=== PATIENT | male | born 1965 | race Caucasian/White ===

== ENCOUNTER 2024-02-21 14:47 | Inpatient (IN) | payer BC, SELFPAY ==
[2024-02-19 18:21] VITALS: BP 160/108
--- NOTE | 2024-02-19 18:28 | ED.CVA ---
ED Provider Triage
<DUGLAS Mayorga - Last Filed: 02/19/24 19:02>
-
Patient seen by provider in Triage?: Seen in Triage
Attestation: A medical screening examination has been initiated by a qualified medical provider. Based on the assessment performed at this time, it has been determined that an emergent medical condition may exist and the patient has been informed
that further medical evaluation and possible additional diagnostic testing may be needed.
HPI: 58-year-old male brought to the ER by for evaluation of change mental status. Patient's noticed around 4 PM that patient was confused and could not remember things. He could not remember what he did today. She reports he works
from home and did not come down for lunch. She reports that they did have afternoon sexual intercourse and she did not see him since then. She
Began at 4 PM and noticed that he was confused. He could not remember what he did that morning and could not remember the events of the day.
Patient presents awake alert he is aware that he is here because he apparently cannot remember things and does admit to feeling confused.
Patient is able to tell me his name is aware that his is next to him. He is unsure of the day month or year. He does follow commands. He denies any headache.
reports no recent injury or trauma. No prior history of stroke. Recent trip to [place] in January 29 to via flight.
Patient able to answer questions though he is confused. He has no focal deficits.
GENERAL: Alert , in no apparent distress
EYE: No visual abnormalities.
NECK: Trachea midline
ENT: No visible abnormalities.
LUNGS: No acute respiratory distress
NEUROLOGICAL: Alert confused to year , day, month, no focal deficits
SKIN: Skin intact. No visible changes.
MUSCULOSKELETAL: Moving extremities normally
PSYCH: Normal and appropriate interaction.
This is a medical evaluation conducted in person to initiate diagnostic evaluation and provide initial therapeutics. Please see further documentation by the treating clinician.
History of Present Illness
<DUGLAS Mayorga - Last Filed: 02/19/24 19:02>
General
Chief Complaint: CVA/TIA Symptoms
Time Seen by Provider: 02/19/24 18:58
<Jann Salinas MD - Last Filed: 02/19/24 19:40>
General
Source: patient and spouse
Exam Limitations: clinical condition
Nursing documentation reviewed up to this point in time: agreed with
Onset of Stroke Symptoms
Onset of symptoms known: No
Time pt last seen normal is known: Yes
Date last time pt seen normal: 02/19/24
Time last time pt seen normal: 13:00
History of Present Illness
History of Present Illness:
58-year-old male with no reported chronic medical issues presents to the emergency room accompanied by his for evaluation of acute memory loss. Patient cannot tell me why he is in the hospital and is limited as a historian for this reason. He
cannot recall the events of today at all. He says that he feels well here he denies any complaints including a headache, chest pain, abdominal pain, nausea or any other issues. Denies feeling weak or numb in his extremities, denies change in his
vision or speech. According to his he was in his normal state of health�in fact they had intercourse today at around noon�and he was last seen by his normal at around 1 PM. At around 4 PM his says that he came into her office at
home and seem to be very confused and could not recall events from earlier in the day. Symptoms were not improving as the evening went on and he was remembering significant facts including the location of his son, where his mother lives, etc.
brought to the ER for assessment. She never noticed any slurred speech, focal weakness or numbness, facial drooping. He has never had similar symptoms in the past. There was no recent fall or trauma she says. Denies any history of alcohol or
drug use.
Review of Systems
<Jann Salinas MD - Last Filed: 02/19/24 19:40>
Review of Systems
All Other Systems: ROS reviewed and negative except as documented in HPI and ROS
Constitutional: Denies fever
Respiratory: Denies trouble breathing
Cardiac: Denies chest pain
ABD/GI: Denies abdominal pain or nausea
Neurological: Denies headache, weakness or numbness
Phy Exam
<Jann Salinas MD - Last Filed: 02/19/24 19:40>
Physical Exam
Physical Exam:
General: Awake, alert, oriented to person and place but not time, not in acute distress
Head: Normocephalic, atraumatic
Eyes: Conjunctiva normal, EOMI, pupils equal round and reactive to light bilateral
Throat: Airway intact, handling secretions
Neck: Trachea midline, supple without meningismus
Lungs: Clear to auscultation bilaterally, no wheezing, rales, rhonchi
Heart: Regular rate and rhythm, no murmurs, gallops, or rubs
Abd: Soft, non distended, nontender
Neuro: Cranial nerves intact 2 through 12, speech is fluid without dysarthria or aphasia, no limb ataxia, motor and sensory intact proximally and distally in the upper and lower extremities
Skin: no rash
Extremities: No edema in extremities, equal pulses in all extremities
Scores
<Jann Salinas MD - Last Filed: 02/19/24 19:40>
NIH Stroke Score
Level of Consciousness: 0 - Alert
LOC Questions: 1-Answers one correctly
LOC Commands: 0-Performs both correctly
Best Horizontal Gaze: 0-Normal
Visual Courtney: 0=Normal, no visual loss
Facial Palsy: 0=Normal, symmetrical
Motor - Right Arm: 0=No drift 10 seconds
Motor - Left Arm: 0=No drift 10 seconds
Motor - Right Le-No drift 5 seconds
Motor - Left Le-No drift 5 seconds
Limb Ataxia: 0-Absent
Sensation: 0-Normal
Best Language: 0-No aphasia
Dysarthria: 0-Normal
Extinction and Inattention: 0-No abnormality
Total Score:: 1
Heart Failure Risk
Heart Failure Risk Score: Not Applicable
Heart Score for Chest Pain Patients
STEMI patient?: Not applicable
Withdrawal Assessment of Alcohol
Withdrawal Assessment Completed?: Not applicable
Course
<DUGLAS Mayorga - Last Filed: 02/19/24 19:02>
Orders/Labs/Results
Orders:
Orders
02/19/24 18:28
Urinalysis Reflex To Culture Urgent
02/19/24 18:29
CT Head W/o Iv Contrast Stat
Comment:
Reason For Exam: change in ms
02/19/24 18:43
Electrocardiogram (*1) Urgent
Reason for Study: TIA/Stroke
02/19/24 18:44
EKG- Treatment ONCE
02/19/24 18:50
Comprehensive Metabolic Panel Urgent
Thyroid Stimulating Hormone to Reflex [TSH Reflex To Free T4] Urgent
02/19/24 18:51
Troponin I Urgent
02/19/24 19:10
CT Head & Neck Angio W/wo IV Urgent
Comment:
Reason For Exam: acute onset behavioral change
Aspirin 325 mg PO NOW STA
Clopidogrel Bisulfate [Plavix] 75 mg PO NOW STA
02/19/24 19:15
Complete Blood Count/With Diff Urgent
02/19/24 19:33
Electrocardiogram (*1) Urgent
Reason for Study: TIA/Stroke
EKG- Treatment ONCE
Abnormal Lab Results
02/19/24
18:50
BUN 26 H mg/dl
(9-20)
Glucose 105 H mg/dl
(70-99)
02/19/24 18:50
Vital Signs
Initial and Last Documented VS:
Initial Vital Signs
Temp Pulse Resp BP Pulse Ox
36.4 C 81 18 160/108 97
02/19/24 18:21 02/19/24 18:21 02/19/24 18:21 02/19/24 18:21 02/19/24 18:21
Last Documented Vital Signs
Temp Pulse Resp BP Pulse Ox
36.4 C 81 18 160/108 97
02/19/24 18:21 02/19/24 18:21 02/19/24 18:21 02/19/24 18:21 02/19/24 18:21
<Jann Salinas MD - Last Filed: 02/19/24 19:40>
Orders/Labs/Results
Orders:
Orders
02/19/24 18:28
Urinalysis Reflex To Culture Urgent
02/19/24 18:29
CT Head W/o Iv Contrast Stat
Comment:
Reason For Exam: change in ms
02/19/24 18:43
Electrocardiogram (*1) Urgent
Reason for Study: TIA/Stroke
02/19/24 18:44
EKG- Treatment ONCE
02/19/24 18:50
Comprehensive Metabolic Panel Urgent
Thyroid Stimulating Hormone to Reflex [TSH Reflex To Free T4] Urgent
02/19/24 18:51
Troponin I Urgent
02/19/24 19:10
CT Head & Neck Angio W/wo IV Urgent
Comment:
Reason For Exam: acute onset behavioral change
Aspirin 325 mg PO NOW STA
Clopidogrel Bisulfate [Plavix] 75 mg PO NOW STA
02/19/24 19:15
Complete Blood Count/With Diff Urgent
02/19/24 19:33
Electrocardiogram (*1) Urgent
Reason for Study: TIA/Stroke
EKG- Treatment ONCE
Abnormal Lab Results
02/19/24
18:50
BUN 26 H mg/dl
(9-20)
Glucose 105 H mg/dl
(70-99)
02/19/24 18:50
Vital Signs
Initial and Last Documented VS:
Initial Vital Signs
Temp Pulse Resp BP Pulse Ox
36.4 C 81 18 160/108 97
02/19/24 18:21 02/19/24 18:21 02/19/24 18:21 02/19/24 18:21 02/19/24 18:21
Last Documented Vital Signs
Temp Pulse Resp BP Pulse Ox
36.4 C 81 18 160/108 97
02/19/24 18:21 02/19/24 18:21 02/19/24 18:21 02/19/24 18:21 02/19/24 18:21
<Jann Salinas MD - Last Filed: 02/19/24 19:40>
MDM/Problems Addressed
Differential Diagnosis Includes:
Frontal stroke, focal seizure, transient global amnesia, drug/alcohol intoxication
MDM/Problems Addressed:
58-year-old male presents for evaluation of acute memory loss�last seen normal 1 PM. Hypertensive otherwise normal vitals. Physical exam as above. Stroke alert called; NIH stroke scale 1. He is outside tPA window based on last known normal. CT
head was negative for any acute pathology. Usual labs sent off and unremarkable. Patient was seen by neurology and case discussed at bedside�suspect likely transient global amnesia but will plan to admit for CTA head and neck, MRI to rule out
frontal stroke. Case discussed with hospitalist for admission.
Acute Exacerbation and/or Progression of Chronic Illness:
Acutely hypertensive�permissive in the setting of possible stroke
Acute Exacerbation and/or Progression of Chronic Illness: HTN
<Jann Salinas MD - Last Filed: 02/19/24 19:40>
*Radiology
Radiology exam reviewed: radiology read reviewed
*Pulse Oximetry
Patient hypoxic: no
*Critical Care Note
Total Time (30-74mins, 75-104mins- exclusive of procedures): Not Applicable
Data Reviewed
Source: patient and spouse
<Jann Salinas MD - Last Filed: 02/19/24 19:40>
Patient Management
Discussion with other providers: Hospitalist (Discussed with hospitalist) and Manager Asset (Discussed with neurology)
Escalation/DeEscalation of care consider admission/obs:
Admission indicated
ED Attending Note
<DUGLAS Mayorga - Last Filed: 02/19/24 19:02>
-
Portions of this chart may have been created with voice recognition software.� Occasional wrong word or��sound alike� substitutions may have occurred due to the inherent limitations of voice recognition software.
Discharge Plan
Departure
Patient Disposition: Admit
Date of Disposition: 02/19/24
Time of Disposition: 19:33
Admit to doctor: Cameron
Presentation/result/management discussed w/ accepting MD/DO: Hospitalist
Discharge Problem:
Amnesia
Prescriptions:
No Action
fluticasone propionate [Flonase] 50 mcg/actuation [place],Suspension
1 spray INTRANASAL DAILY
Interventions
Interventions:
*Risk Screen - Suicide Last Done: 02/19/24 18:21
*General Assessment Last Done: 02/19/24 18:21
*Neglect/Abuse Screening Last Done: 02/19/24 18:21
Discharge Date and Time
Print Language: PASHTO
[2024-02-19 18:58] VITALS: BP 144/98
[2024-02-19 19:00] VITALS: BP 146/100
[2024-02-19 19:17] VITALS: BMI 40.3
[2024-02-19 19:18] LABS: ALT (SGPT) 27 U/L (0-50); AST (SGOT) 25 U/L (17-59); Albumin 4.8 g/dl (3.5-5.0); Alkaline Phosphatase 76 U/L (38-126); Blood Urea Nitrogen 26 mg/dl (9-20); Calcium 9.8 mg/dl (8.4-10.2); Carbon Dioxide 23 mmol/L (22-30); Chloride 101 mmol/L (98-107); Estimated Creatinine Clearance > 125 ml/min; Glucose 105 mg/dl (70-99); Potassium 4.1 mmol/L (3.5-5.1); Sodium 137 mmol/L (135-145); Total Bilirubin 0.9 mg/dl (0.2-1.3); Total Protein 7.7 g/dl (6.3-8.2); eGFR > 60.00
[2024-02-19] MEDS: PLAVIX 75 MG PO (19:27)
[2024-02-19] MEDS: ASPIRIN 325 MG PO (19:27)
[2024-02-19 19:29] LABS: Troponin I < 0.012 ng/ml
--- NOTE | 2024-02-19 19:35 | HPS.HSE ---
Addendum entered and electronically signed by Adi Barnes DO 02/19/24 20:31:
Patient seen and examined independently. Agree with findings and plan as set forth by DUGLAS Craig.
Patient is a 58y M with no significant PMH who presents to ED for evaluation of confusion. History obtained almost entirely from family at the bedside as patient has no recollection of immediate events leading to hospitalization. Patient
reports recent cold symptoms including sinus congestion. He has been taking Flonase, Mucinex and OTC 'Sudafed' with some improvement in these symptoms. He actually stopped most of these medications in the past day or two as he was feeling
improved. Today he seemed very confused according to his . He had poor recollection of recent events and could not remember eating his lunch, etc. was concerned with his significant confusion / disorientation and brought patient to the
ED for evaluation.
In the ED, patient was initially unable to state the year, day / date, his own age, etc. At present he is oriented to recent issues (though no events of today) and is able to state his age, year, month, etc.
Ass:
TGA
Plan:
Observe overnight for further evaluation and treatment.
Fairly typical presentation of TGA with no focal deficits / symptoms / etc.
CT head in the ED with no acute abnormalities.
Neuro recommends DAPT overnight with MRI in the AM for further evaluation.
Follow for any new / worsening symptoms.
Original Note:
Family Physician
-
Family Physician:
Chief Complaint
-
memory loss
History of Present Illness
58 year old with non significant PMH presented to us with confusion. patient couldn't remember anything that he did today. patient is awake, alert. patient not familiar with the day and the year. stated nasal congestion for one week. he was taking
fluticasone and pseudoephedrine. he remember taking it yesterday, but does not remember if he took it today. denied RUANO,dizzy or syncope. denied fever, chills,chest pain, sob.denied abdominal pain,n,v,d. denied dysuria or hematuria.he still cannot
remember the year, date and month.
head CT with old lacunar infract. admitting for further management.
Medical History
Past Medical History
Past Medical History: Reports None
Past Surgical History: Reports Other
Additional Past Surgical History:
b/l knee surgery
splenectomy
Social History
Tobacco: Non-smoker
Alcohol: None
Drug: None
Personal:
Living: With Family
Employment: Employed
Family History
Family History: Not pertinent
Allergies / Home Medications
Allergies reflects when Allergies were last updated in [employer].
Home Medications with original date entered in [employer]
Allergy/Medication List:
Allergies
Allergy/AdvReac Type Severity Reaction Status Date / Time
No Known Allergies Allergy Unverified 02/19/24 18:20
Home Medications
fluticasone propionate 50 mcg/actuation nasal spray,suspension 1 spray intranasal DAILY 02/19/24
Review of Systems
-
Constitutional: Reports No Symptoms
EENT: Reports No Symptoms
Respiratory: Reports No Symptoms
Cardiac: Reports No Symptoms
Abdomen/GI: Reports No Symptoms
: Reports No Symptoms
Musculoskeletal: Reports No Symptoms
Skin: Reports No Symptoms
Neurological: Reports No Symptoms and Other (confusion)
Endocrine: Reports No Symptoms
Hematologic/Lymphatic: Reports No Symptoms
Psych: Reports No Symptoms
Physical Exam
Vital Signs
Vital Signs
Temp Pulse Resp BP Pulse Ox
97.5 F 81 18 160/108 97
02/19/24 18:21 02/19/24 18:21 02/19/24 18:21 02/19/24 18:21 02/19/24 18:21
Physical Exam
General: Well Developed, Well Nourished and No Apparent Distress
HEENT: NormoCephalic, Moist mucous membranes and Atraumatic
Respiratory: Clear
Cardiac: S1/S2 and Regular Rhythm; No Murmur or Rub
GI: Soft, Non Tender, Non Distended and Normal Bowel Sounds; No Organomegaly
Rectal: Deferred by Provider
Musculoskeletal: No Clubbing, No Cyanosis and No Edema
Skin: No Rash
Neuro: Awake, Alert and Nonfocal/grossly intact
Laboratory Results
-
02/19/24 18:50
Laboratory Results
Total Bilirubin 0.9 mg/dl (0.2-1.3) 02/19/24 18:50
AST 25 U/L (17-59) 02/19/24 18:50
ALT 27 U/L (0-50) 02/19/24 18:50
Alkaline Phosphatase 76 U/L (38-126) 02/19/24 18:50
Troponin I < 0.012 ng/ml 02/19/24 18:51
Data Reviewed
-
CT Scan: Report Reviewed by me
Lab Data: Labs Reviewed by me
Impression/Plan
-
#possible TGA/r/o CVA
-Ct head 4 mm probably old lacunar infarct in the left lentiform nucleus.Mild diffuse cortical atrophy
-asa and plavix continued
-CTA/MRI
-statin continued
-obtain A1c,lipid profile
-PT/OT
-speech eval
#DVT prophylaxis
-scd
#CODE status
-full code
[2024-02-19 19:37] LABS: % Basophils 0.5 % (0-2); % Eosinophils 1.4 % (0-6); % Immature Granulocytes 0.3 % (0-0.5); % Lymphocytes 34.3 % (20.5-51.1); % Monocytes 11.3 % (1.7-9.3); % Neutrophils 52.2 % (42.2-75.2); Absolute Basophils 0.1 10^3/uL (0-0.2); Absolute Eosinophils 0.2 10^3/uL (0-0.7); Absolute Immature Granulocytes 0.1 10^3/uL (0-0.05); Absolute Monocytes 1.7 10^3/uL (0.1-0.6); Absolute Neutrophils 7.6 10^3/uL (1.4-6.5); Hematocrit 49.8 % (39.0-52.0); Hemoglobin 16.7 g/dL (13.0-18.0); Mean Corp Hgb Conc. 33.5 g/dL (33.0-37.0); Mean Corpuscular Volume 89.4 fL (80.0-94.0); Mean Platelet Volume 9.3 fL (7.4-10.4); Nucleated Red Blood Cells % 0 % (-); Platelet Count 362 10^3/uL (130-400); Red Blood Cell Count 5.57 10^6/uL (4.70-6.10); Red Cell Dist. Width 13.7 % (11.5-14.5); White Blood Cell Count 14.6 10^3/uL (4.8-10.8)
[2024-02-19 19:53] LABS: TSH Reflex To Free T4 1.69 uIU/ml (0.47-4.68)
[2024-02-19 20:23] VITALS: BP 139/81
[2024-02-19 20:31] LABS: Urine Albumin Negative (Neg - Trace); Urine Bilirubin Negative (Negative); Urine Character Clear (Clear); Urine Color Yellow; Urine Glucose Negative (Negative); Urine Ketone Negative (Negative); Urine Leukocyte Negative (Negative); Urine Nitrite Negative (Negative); Urine Occult Blood Negative (Negative); Urine Specific Gravity 1.025 (<1.030); Urine Urobilinogen Negative (Neg - 1+)
--- NOTE | 2024-02-19 20:36 | CON.NEURO ---
Addendum entered and electronically signed by Hanny Mattson MD 02/19/24 21:28:
stroke alert
called in at 18:53
Please refer to the consult note after note template
Original Note:
Neuro Assessment/Plan
Assessment
Neurology Consultation Note.
HPI:
ER VS: 160/108, 81, 18, 36.4 C
EKG:
PDMP:
Labs:
CT head wo contrast
CTA head/neck
PMH:
PSH:
SH:
FH:
All:
ROS: Constitutional: Negative. Negative for chills, fever and unexpected weight change.
HENT: Negative for ear pain, hearing loss, tinnitus and trouble swallowing.
Eyes: Negative. Negative for photophobia, pain and visual disturbance.
Respiratory: Negative for cough, choking and shortness of breath.
Cardiovascular: Negative for chest pain, palpitations and leg swelling.
Gastrointestinal: Negative for abdominal pain and vomiting.
Endocrine: Negative. Negative for cold intolerance.
Genitourinary: Negative for dysuria, flank pain and urgency.
Musculoskeletal: Negative for back pain, gait problem, neck pain and neck stiffness.
Skin: Negative for rash.
Allergic/Immunologic: Negative. Negative for immunocompromised state.
Neurological: Negative for dizziness, tremors, seizures, speech difficulty, numbness and headaches.
Psychiatric/Behavioral: Negative for behavioral problems, confusion and hallucinations.
General: Well developed. In no acute distress.
Cardio: Regular rate and rhythm without murmur. Extremities are without cyanosis or edema.
Neuro:
Mental Status: Alert, oriented to person, place, and date. Normal attention and recall. Good fund of knowledge. Follows complex requests across the midline. Comprehension, naming, and repetition intact. Immediate and delayed recall 3/3.
Cranial Nerves: . Pupils are equally round and reactive to light. EOMs full. Visual muniz full to confrontation. No ptosis. No nystagmus. V1-V3 intact to light touch and pinprick bilaterally, symmetric. Face symmetric. Normal hearing AU.
The palate elevated well. SCMs and traps 5/5. Tongue midline. No dysarthria.
Motor: Normal bulk and tone. No pronator or arm drift. Strength 5/5 throughout. No clonus.
Reflexes: 2+ throughout the upper extremities and knees. 2/2 in AJs. Plantar responses flexor bilaterally.
Sensory: Normal pinprick, vibration and JPS.
Coordination: No dysmetria or tremor.
Gait: deferred
Assessment and Plan:
I.
II.
III.
I personally reviewed all radiology and labs along with past medical records pertinent to current medical problems. Total time spent in patient care is 60 minutes.
Thank you for allowing us to participate in the care of this patient. We will continue to follow. Please do not hesitate to contact us with any questions or concerns.
Consultation
Order
Date of Consultation: 02/19/24
Requesting Provider: Sofy Treadwell CRNP
Reason for Consult: confusion
Neurology Consultation Note.
HPI: This is a 58-year-old right-handed man who presented to [facility] on 02/19/2024 with change in memory. According to patient's spouse she noted Mr. Carpio to be amnestic of the events that took place late morning as well as
perseverating around 1:00..
The patient himself endorses frustration with the fact that he is in the hospital. No reports of headache, change in vision, strange sensation with similar episodes in the past.
ER VS:160/108, 81, 18, 36.4 C
EKG:NSR, QTc Int : 467 ms
PDMP: none
Labs: WBC 14.6, gluc 105, normal TSH, unremarkable ua.
CT head wo contrast-mild diffuse cortical atrophy, 4 mm probably old lacunar infarct in the left lentiform nucleus
PMH: class III obesity; colonic polyps history of sport related abdominal trauma
PSH: Exploratory laparotomy, splenectomy, right knee arthroscopy
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
FH: Father�colon/lung cancer, dementia; mother�pancreatic cancer, brother�A-fib
All:NKDA
ROS: Constitutional: Negative. Negative for chills, fever and unexpected weight change.
HENT: Negative for ear pain, hearing loss, tinnitus and trouble swallowing.
Eyes: Negative. Negative for photophobia, pain and visual disturbance.
Respiratory: Negative for cough, choking and shortness of breath.
Cardiovascular: Negative for chest pain, palpitations and leg swelling.
Gastrointestinal: Negative for abdominal pain and vomiting.
Endocrine: Negative. Negative for cold intolerance.
Genitourinary: Negative for dysuria, flank pain and urgency.
Musculoskeletal: Negative for back pain, gait problem, neck pain and neck stiffness.
Skin: Negative for rash.
Allergic/Immunologic: Negative. Negative for immunocompromised state.
Neurological: Positive for amnesia
Psychiatric/Behavioral: Negative for behavioral problems, confusion and hallucinations.
General: Well developed. In no acute distress.
Cardio: Regular rate and rhythm without murmur. Extremities are without cyanosis or edema.
Neuro:
Mental Status: Alert, oriented to person, place, and date. Normal attention and recall. Good fund of knowledge. Follows complex requests across the midline. Comprehension, naming, and repetition intact. Immediate recall�3 out of 3, delayed
recall�0 out of 3
Cranial Nerves: . Pupils are equally round and reactive to light. EOMs full. Visual muniz full to confrontation. No ptosis. No nystagmus. V1-V3 intact to light touch and pinprick bilaterally, symmetric. Face symmetric. Normal hearing AU.
The palate elevated well. SCMs and traps 5/5. Tongue midline. No dysarthria.
Motor: Normal bulk and tone. No pronator or arm drift. Strength 5/5 throughout. No clonus.
Reflexes: 2+ throughout the upper extremities and knees. Plantar responses flexor bilaterally.
Sensory: Normal vibration at the ankles
Coordination: No dysmetria or tremor.
Gait: deferred
Assessment and Plan:
I. Acute amnestic syndrome. Differential diagnosis includes metabolic/toxic encephalopathy, hippocampal infarct, seizure, and dissociative DO.
II. Elevated blood pressure
III. Leukocytosis
-desk monitor
-Seizure precautions
-Please check urine tox,
-Ativan 2 mg IV as needed for GTC lasting for over 2 minutes
-thiamine 500 mg IV once
-Aspirin 81 mg once a day
-Brain MRI without maria e
-Routine EEG
-Will follow
I personally reviewed all radiology and labs along with past medical records pertinent to current medical problems. Total time spent in patient care is 60 minutes.
Thank you for allowing us to participate in the care of this patient. We will continue to follow. Please do not hesitate to contact us with any questions or concerns.
Subjective/Objective
Subjective Data
Date of Service: February 19, 2024
Objective Data
Vital Signs
Temp Pulse Resp BP Pulse Ox
36.4 C 81 18 160/108 97
02/19/24 18:21 02/19/24 18:21 02/19/24 18:21 02/19/24 18:21 02/19/24 18:21
Lab Results
02/19/24 19:15
02/19/24 18:50
Sodium 137 mmol/L (135-145) 02/19/24 18:50
Potassium 4.1 mmol/L (3.5-5.1) 02/19/24 18:50
BUN 26 mg/dl (9-20) H 02/19/24 18:50
Glucose 105 mg/dl (70-99) H 02/19/24 18:50
Calcium 9.8 mg/dl (8.4-10.2) 02/19/24 18:50
Patient Allergies
No Known Allergies Allergy (Unverified 02/19/24 18:20)
Medications
-
Home Medications
�Medication �Instructions �Recorded
fluticasone propionate 50 1 spray intranasal DAILY 02/19/24
mcg/actuation nasal
spray,suspension
Vital Signs and Labs
-
Vital Signs and Labs:
Vital Signs
Temp Pulse Resp BP Pulse Ox
36.4 C 81 18 160/108 97
02/19/24 18:21 02/19/24 18:21 02/19/24 18:21 02/19/24 18:21 02/19/24 18:21
Lab Results
02/19/24 19:15
02/19/24 18:50
Sodium 137 mmol/L (135-145) 02/19/24 18:50
Potassium 4.1 mmol/L (3.5-5.1) 02/19/24 18:50
BUN 26 mg/dl (9-20) H 02/19/24 18:50
Glucose 105 mg/dl (70-99) H 02/19/24 18:50
Calcium 9.8 mg/dl (8.4-10.2) 02/19/24 18:50
Home Medications
-
Home Medications
fluticasone propionate 50 mcg/actuation nasal spray,suspension 1 spray intranasal DAILY 02/19/24
[2024-02-19] MEDS: THIAMINE INJECTION 255 MG IV (21:50)
[2024-02-20] VITALS (26 sets, daily range): BP systolic 122–152; BP diastolic 81–114; PULSE 77; O2SAT 93; BMI 39.8
[2024-02-20] MEDS: LIPITOR PO (00:31)
[2024-02-20 06:47] LABS: HDL Cholesterol 43 mg/dl; LDL Cholesterol, Calculated 149 mg/dl; Total Cholesterol 213 mg/dl (50-199); Triglyceride 106 mg/dl (10-149); Very Low Density Lipoprotein 21 mg/dl (0-30)
--- NOTE | 2024-02-20 09:16 | W.PN.HOSP.TC ---
Today's Communication/Plan
-
Awaiting MRI and EEG results. Continue monitoring for any changes in motor or sensory functions or memory.
Assessment / Plan
Assessment / Plan
Assessment:
58 year old male with no significant past medical history presented to [facility] ED for evaluation of confusion and recent memory loss. Patient describes that he has no recollection of what had happened a few hours immediately before his
hospitalization. He remarks that his memory is otherwise fine except for those few hours. Currently he has no motor or sensory deficits and reports no other symptoms.
CT Head W/o Iv Contrast
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
Mild diffuse cortical atrophy
CT Head & Neck Angio W/wo IV
Normal
Plan:
#Acute Amnestic Syndrome
-Brain MRI w/o contrast
-Routine EEG
-Neurology consulted, input appreciated
-Thiamine given in ED
-Continue Aspirin and Plavix
-Seizure Precautions
-Continue monitoring for any changes in mental status
#Hypertension
-Continue monitoring BP
#Hyperlipidemia
-Follow up with PCP outpatient
Full Code
DVT Prophylaxis- SCDs, Plavix
Anticipated Discharge: Within 24 hours
Subjective/Interval History
-
Date of Service: February 20, 2024
Patient says that he has been feeling better ever since he has been admitted. Reports no further loss of memory and reports no loss of sensory or motor function.
Objective Data
-
Vital Signs:
Vital Signs
Temp Pulse Resp BP Pulse Ox
97.5 F 76 20 139/92 94
02/19/24 18:21 02/20/24 05:56 02/20/24 05:56 02/20/24 05:56 02/20/24 05:56
Review of Systems
-
History Source: Patient
Constitutional: Denies Fever, No Appetite, Fatigue, Sleep Disturbance, Chills or Weakness
EENT: Reports No Symptoms Reported
Respiratory: Denies Cough, Trouble Breathing or Wheezing
Cardiac: Denies Chest Pain, Diaphoresis, Palpitations or Syncope
Abdomen/GI: Denies Abdominal Pain, Nausea or Vomiting
Genitourinary: Reports No Symptoms
Musculoskeletal: Reports No Symptoms
Skin: Reports No Symptoms
Neuro: Denies Dizzy, Headache, Weakness, Numbness, Lightheadedness or Seizures
Endocrine: Reports No Symptoms
Hematologic / Lymphatic: Reports No Symptoms
Allergy / Immunology: Reports No Symptoms
Physical Exam
-
General: Well Developed, Well Nourished, No Apparent Distress and Comfortable
HEENT: Normocephalic, Atraumatic and Moist Mucous Membranes
Respiratory: Clear to Auscultation and Non Labored Respirations
Cardiac: Regular Rhythm and S1/S2
GI: Soft, Nontender, Nondistended and Normal Bowel Sounds
Musculoskeletal: No Clubbing, No Cyanosis and No Edema
Skin: Warm, Dry and Rash (around lower face (urticarial rash))
Neuro: Awake, Alert, Oriented, AO x 3, No Motor Deficits, Nonfocal/Grossly Intact and No Sensory Deficits
Psych: Calm and Intact Judgement/Insight
Data Reviewed
-
CT Scan: Report Reviewed by me, Discussed with Physician, Discussed with Nurse and Discussed with Patient
Labs: Labs Reviewed by me, Discussed with Physician, Discussed with Nurse and Discussed with Patient
[2024-02-20] MEDS: PLAVIX 75 MG PO (09:23)
[2024-02-20] MEDS: ASPIR LOW (ENTERIC COATED) 81 MG PO (09:23)
--- NOTE | 2024-02-20 09:33 | W.PN.UPDATE ---
Update Note
Progress Note Update
I saw and evaluated the patient. I reviewed the resident�s note and agree with findings and plan as documented in the resident�s note.
Gen: NAD, AAOx3.
Eyes: EOMI, PERRLA, no scleral icterus.
Neck: supple.
CV: RRR, +S1/S2, no m/r/g.
Resp: CTAB, no rales, wheezes, or rhonchi.
Abd: +BS, soft, NT, ND
Skin: No rashes.
Neuro: CN 2-12 intact, non-focal.
Psych: Normal mood and affect.
CTA head/neck: Normal
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 Mild diffuse cortical atrophy.
Memory loss:
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
-CT brain, CTA head/neck above
-neuro following
-EEG done, read pending
-check MRI brain
-cont ASA/Plavix/statin
-tele
Morbid obesity due to excess calories
FULL/SCDs
--- NOTE | 2024-02-20 09:50 | W.PN.NEURO.1 ---
Today's Communication / Plan
-
.
Neuro Assessment/Plan
Assessment
Neurology Consultation Note.
HPI:
ER VS: 160/108, 81, 18, 36.4 C
EKG:
PDMP:
Labs:
CT head wo contrast
CTA head/neck
PMH:
PSH:
SH:
FH:
All:
ROS: Constitutional: Negative. Negative for chills, fever and unexpected weight change.
HENT: Negative for ear pain, hearing loss, tinnitus and trouble swallowing.
Eyes: Negative. Negative for photophobia, pain and visual disturbance.
Respiratory: Negative for cough, choking and shortness of breath.
Cardiovascular: Negative for chest pain, palpitations and leg swelling.
Gastrointestinal: Negative for abdominal pain and vomiting.
Endocrine: Negative. Negative for cold intolerance.
Genitourinary: Negative for dysuria, flank pain and urgency.
Musculoskeletal: Negative for back pain, gait problem, neck pain and neck stiffness.
Skin: Negative for rash.
Allergic/Immunologic: Negative. Negative for immunocompromised state.
Neurological: Negative for dizziness, tremors, seizures, speech difficulty, numbness and headaches.
Psychiatric/Behavioral: Negative for behavioral problems, confusion and hallucinations.
General: Well developed. In no acute distress.
Cardio: Regular rate and rhythm without murmur. Extremities are without cyanosis or edema.
Neuro:
Mental Status: Alert, oriented to person, place, and date. Normal attention and recall. Good fund of knowledge. Follows complex requests across the midline. Comprehension, naming, and repetition intact. Immediate and delayed recall 3/3.
Cranial Nerves: . Pupils are equally round and reactive to light. EOMs full. Visual muniz full to confrontation. No ptosis. No nystagmus. V1-V3 intact to light touch and pinprick bilaterally, symmetric. Face symmetric. Normal hearing AU.
The palate elevated well. SCMs and traps 5/5. Tongue midline. No dysarthria.
Motor: Normal bulk and tone. No pronator or arm drift. Strength 5/5 throughout. No clonus.
Reflexes: 2+ throughout the upper extremities and knees. 2/2 in AJs. Plantar responses flexor bilaterally.
Sensory: Normal pinprick, vibration and JPS.
Coordination: No dysmetria or tremor.
Gait: deferred
Assessment and Plan:
I.
II.
III.
I personally reviewed all radiology and labs along with past medical records pertinent to current medical problems. Total time spent in patient care is 60 minutes.
Thank you for allowing us to participate in the care of this patient. We will continue to follow. Please do not hesitate to contact us with any questions or concerns.
Subjective/Objective
Subjective Data
Date of Service: February 20, 2024
Neurology follow-up note
Mr. Carpio reports no complaints.
According to patient's spouse the patient has had intermittent episodes of forgetfulness, including forgetting conversations about dinner plans, meal planning for his son's ulcerative colitis, and misplacing his bank card after signing a bill at a
restaurant. He has also experienced changes in personality, becoming more short-tempered, irritable, and exhibiting irrational jealousy. These changes have been noticeable over the past year and were initially attributed to stress.
His executive functions, such as planning and multitasking, appear to be intact.
Brain MRI is pending. The patient continues to be afebrile.
LDL 149.
Routine EEG(02/20/2024) normal.
PMH: class III obesity; colonic polyps history of sport related abdominal trauma
PSH: Exploratory laparotomy, splenectomy, right knee arthroscopy
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
FH: Father�colon/lung cancer, dementia (developed in his 70s); mother�pancreatic cancer, brother�A-fib
All:NKDA
ROS: Constitutional: Negative. Negative for chills, fever and unexpected weight change.
HENT: Negative for ear pain, hearing loss, tinnitus and trouble swallowing.
Eyes: Negative. Negative for photophobia, pain and visual disturbance.
Respiratory: Negative for cough, choking and shortness of breath.
Cardiovascular: Negative for chest pain, palpitations and leg swelling.
Gastrointestinal: Negative for abdominal pain and vomiting.
Endocrine: Negative. Negative for cold intolerance.
Genitourinary: Negative for dysuria, flank pain and urgency.
Musculoskeletal: Negative for back pain, gait problem, neck pain and neck stiffness.
Skin: Negative for rash.
Allergic/Immunologic: Negative. Negative for immunocompromised state.
Neurological: Positive for amnesia
Psychiatric/Behavioral: Negative for behavioral problems, confusion and hallucinations.
General: Well developed. In no acute distress.
Cardio: Regular rate and rhythm without murmur. Extremities are without cyanosis or edema.
Neuro:
Mental Status: Alert, oriented to person, place, and date. Normal attention and recall. Good fund of knowledge. Follows complex requests across the midline. Comprehension, naming, and repetition intact. Immediate recall�3 out of 3, delayed
recall�1/3.
Cranial Nerves: . Pupils are equally round and reactive to light. EOMs full. Visual muniz full to confrontation. No ptosis. No nystagmus. V1-V3 intact to light touch and pinprick bilaterally, symmetric. Face symmetric. Normal hearing AU.
The palate elevated well. SCMs and traps 5/5. Tongue midline. No dysarthria.
Motor: Normal bulk and tone. No pronator or arm drift. Strength 5/5 throughout. No clonus.
Reflexes: 2+ throughout the upper extremities and knees. Plantar responses flexor bilaterally.
Sensory: Normal vibration at the ankles
Coordination: No dysmetria or tremor.
Gait: deferred
Assessment and Plan:
I. Encephalopathy. Differential diagnosis includes vascular, toxic, neurodegenerative
II. Elevated blood pressure
III. Leukocytosis
IV. DLP
-case monitor
-Seizure precautions
-Please check urine tox
-Ativan 2 mg IV as needed for GTC lasting for over 2 minutes
-Aspirin 81 mg once a day
-Brain MRI without maria e
-Will follow
I personally reviewed all radiology and labs along with past medical records pertinent to current medical problems. Total time spent in patient care is 35 minutes.
Thank you for allowing us to participate in the care of this patient. We will continue to follow. Please do not hesitate to contact us with any questions or concerns.
Objective Data
Vital Signs
Temp Pulse Resp BP Pulse Ox
36.7 C 87 18 143/109 95
02/20/24 09:27 02/20/24 09:27 02/20/24 09:27 02/20/24 09:27 02/20/24 09:27
Lab Results
02/19/24 19:15
02/19/24 18:50
Sodium 137 mmol/L (135-145) 02/19/24 18:50
Potassium 4.1 mmol/L (3.5-5.1) 02/19/24 18:50
BUN 26 mg/dl (9-20) H 02/19/24 18:50
Glucose 105 mg/dl (70-99) H 02/19/24 18:50
Calcium 9.8 mg/dl (8.4-10.2) 02/19/24 18:50
LDL Cholesterol, Calc 149 mg/dl 02/20/24 05:46
Patient Allergies
No Known Allergies Allergy (Unverified 02/19/24 18:20)
Vital Signs and Labs
-
Vital Signs and Labs:
Vital Signs
Temp Pulse Resp BP Pulse Ox
36.7 C 87 18 143/109 95
02/20/24 09:27 02/20/24 09:27 02/20/24 09:27 02/20/24 09:27 02/20/24 09:27
Lab Results
02/19/24 19:15
02/19/24 18:50
Sodium 137 mmol/L (135-145) 02/19/24 18:50
Potassium 4.1 mmol/L (3.5-5.1) 02/19/24 18:50
BUN 26 mg/dl (9-20) H 02/19/24 18:50
Glucose 105 mg/dl (70-99) H 02/19/24 18:50
Calcium 9.8 mg/dl (8.4-10.2) 02/19/24 18:50
LDL Cholesterol, Calc 149 mg/dl 02/20/24 05:46
Medications
-
Medications:
Generic Name Dose Route Start Last Admin
Trade Name Freq PRN Reason Stop Dose Admin
Acetaminophen 650 mg 02/19/24 23:45
Acetaminophen 650 Mg Rectal Suppository RECTAL 03/18/24 23:44
Q4HPRN PRN
RUANO, mild pain, or temp >100.4F
Acetaminophen 650 mg 02/19/24 23:45
Acetaminophen 325 Mg Tablet PO 03/18/24 23:44
Q4HPRN PRN
RUANO, mild pain, or temp >100.4F
Aspirin 81 mg 02/20/24 08:00 02/20/24 09:23
Aspirin 81 Mg (Enteric Coated) Tablet PO 03/19/24 07:59 81 mg
DAILY VIRGIE Administration
Atorvastatin Calcium 40 mg 02/19/24 23:45 02/20/24 00:31
Atorvastatin (Lipitor) 40 Mg Tablet PO 03/18/24 23:44 Not Given
QPM VIRGIE
Clopidogrel Bisulfate 75 mg 02/20/24 08:00 02/20/24 09:23
Clopidogrel 75 Mg Tablet PO 03/19/24 07:59 75 mg
DAILY VIRGIE Administration
Sodium Chloride 0 flush 02/19/24 21:00
Sodium Chloride 0.9% (Flush) Syringe IV 03/18/24 20:59
PER PROTOCOL VIRGIE
Home Medications
-
Home Medications
fluticasone propionate 50 mcg/actuation nasal spray,suspension 1 spray intranasal DAILY 02/19/24
--- NOTE | 2024-02-20 10:06 | EEGC.RPT ---
Continuous EEG Report
Recording
Start Date of Data Reviewed: 02/20/24
Done with Video Recording: Yes
Electrocardiogram: Unremarkable
Report
�TECHNICAL REMARKS:��This is a technically satisfactory eighteen channel record employing 21 disc electrodes applied according to a measured international 10-20 electrode placement system.��There were no significant technical difficulties.��The
study was done on a [employer] System.
STUDY DURATION: 30�mins,�2 secs.
CLINICAL HISTORY: This is a 58-year-old man with amnestic syndrome. This study was requested to look for epileptiform abnormalities.
�
MEDICATIONS: no AED
REPORT: �At the onset of the EEG, the patient is awake. The background activity consists of 10-10.5 Hz, persistent, posteriorly dominant, moderate amplitude, symmetric and rhythmic activity that is reactive to eye-opening. Anteriorly, it consists of
a mixture of low voltage indeterminate activity and 20-25 Hz, persistent, low amplitude, symmetric and rhythmic activity.� Stepwise intermittent photic stimulation (1-31 Hz) and hyperventilation (2 min, good effort) do not induce any abnormalities.
Hyperventilation was not performed. Drowsiness is characterized by low amplitude mixed frequency activity, decreased eye blinking, and muscle artifact.
�
�IMPRESSION: �This is a normal awake and drowsy EEG. There is no evidence of focal slowing or epileptiform activity.� A normal EEG does not rule out epilepsy. If the clinical picture warrants, a sleep-deprived awake and sleep record may be helpful.
�
�
--- NOTE | 2024-02-20 10:06 | CM ---
CM reviewed medical records.
--- NOTE | 2024-02-20 10:19 | PTOTSP ---
SPEECH THERAPY SPEECH/SWALLOW EVALUATION:
Patient exhibits grossly functional oropharyngeal swallow at this time. No history of dysphagia noted. Recommend continue Regular texture solids, thin liquids. Medications whole with liquid as best tolerated. General aspiration precautions. Skilled
ST services for swallow therapy are not indicated at this time.
Patient exhibits grossly functional speech and expressive/receptive language skills, and mildly impaired cognitive communication skills characterized by reduced STM, reduced abstraction skills. MOCA version 8.1 was administered. Patient achieved a
score of 24/30, indicating slightly below normal level (greater than or equal to 26/30). Subscores as follows: Visuospatial/Executive functionin/5. Namin/3. Attention: 6/6. Language: 2/3. Abstraction: 0/2. Delayed Recall: /5. Orientation:
6/6. Memory Index Score 8/15. Patient denies cognitive issues at baseline; Given this, patient appears to be slightly below baseline level of functioning at this time, though per is improved compared to time of admission. MRI pending. ST to
follow briefly pending MRI results.
RECOMMEND:
1) Regular texture diet, thin liquids
2) Medications whole with liquid as best tolerated
3) General aspiration precautions
4) ST to follow briefly for cognitive therapy pending MRI results
[2024-02-20 11:57] LABS: Glycohemoglobin (HgbA1c) 5.5 % (4.0-5.6)
[2024-02-20] MEDS: TYLENOL 650 MG PO (13:24)
[2024-02-20] MEDS: LIPITOR 40 MG PO (17:37)
--- NOTE | 2024-02-20 17:41 | W.PN.UPDATE ---
Update Note
Progress Note Update
MRI brain:
1. Tiny 2 m focus of restricted diffusion in the medial left temporal lobe (hippocampal region) consistent with TRANSIENT GLOBAL AMNESIA.
2. Mild diffuse cerebral and cerebellar volume loss.
3. SEVERE ENLARGEMENT of the POSTERIOR NASOPHARYNGEAL SOFT TISSUES. Diagnostic possibilities are (1) benign reactive adenoid tonsillar hypertrophy or (2) nasopharyngeal malignancy (squamous cell carcinoma or lymphoma).
4. Moderate fluid in the mastoid air cells bilaterally (possibly secondary to eustachian tube obstruction).
5. Mild paranasal sinus mucosal disease.
MRI brain findings discussed with the patient over the phone. I specifically mentioned the severe enlargement of the posterior nasopharyngeal soft tissues which could be nasopharyngeal malignancy (squamous cell carcinoma or lymphoma). I explained
that the patient needs to see ENT within 1 to 2 weeks to have this further investigated. He verbally knowledges understanding of this.
--- NOTE | 2024-02-20 17:55 | W.PN.UPDATE ---
Update Note
Progress Note Update
Case discussed with Dr. Mattson. She would like to the pt to remain hospitalized until echo can be performed. Pt updated.
--- NOTE | 2024-02-20 18:55 | PTCARENOTE ---
Patient admitted from ER into room 401-02. Vital signs stable. Oriented to room, use of call johnson, and bed and TV controls. Patient verbalizes understanding of teaching and denies questions at this time. Patient in NSR on tele monitor.
[2024-02-20 22:16] LABS: Amphetamines Negative (Negative); Barbiturates Negative (Negative); Benzodiazepines Negative (Negative); Buprenorphine Negative (Negative); Cocaine Negative (Negative); Marijuana Negative (Negative); Methadone Negative (Negative); Methamphetamines Negative (Negative); Opiates Negative (Negative); Phencyclidine Negative (Negative); Tricyclic Antidepressants Negative (Negative)
[2024-02-21 03:36] VITALS: BP 127/83
[2024-02-21 06:34] LABS: Hematocrit 50.1 % (39.0-52.0); Hemoglobin 17.3 g/dL (13.0-18.0); Mean Corp Hgb Conc. 34.5 g/dL (33.0-37.0); Mean Corpuscular Hgb 30.6 pg (27.0-31.0); Mean Corpuscular Volume 88.7 fL (80.0-94.0); Mean Platelet Volume 9.8 fL (7.4-10.4); Platelet Count 336 10^3/uL (130-400); Red Blood Cell Count 5.65 10^6/uL (4.70-6.10); Red Cell Dist. Width 13.8 % (11.5-14.5); White Blood Cell Count 13.1 10^3/uL (4.8-10.8)
[2024-02-21 07:03] LABS: ALT (SGPT) 23 U/L (0-50); AST (SGOT) 24 U/L (17-59); Albumin 4.2 g/dl (3.5-5.0); Alkaline Phosphatase 62 U/L (38-126); Blood Urea Nitrogen 17 mg/dl (9-20); Calcium 9.3 mg/dl (8.4-10.2); Carbon Dioxide 23 mmol/L (22-30); Chloride 102 mmol/L (98-107); Estimated Creatinine Clearance > 125 ml/min; Glucose 82 mg/dl (70-99); Potassium 4.6 mmol/L (3.5-5.1); Sodium 135 mmol/L (135-145); Total Bilirubin 1.4 mg/dl (0.2-1.3); eGFR > 60.00
[2024-02-21 07:05] VITALS: BP 128/86
[2024-02-21] MEDS: PLAVIX 75 MG PO (08:32)
[2024-02-21] MEDS: ASPIR LOW (ENTERIC COATED) 81 MG PO (08:32)
--- NOTE | 2024-02-21 09:16 | W.PN.UPDATE ---
Update Note
Progress Note Update
I saw and evaluated the patient. I reviewed the resident�s note and agree with findings and plan as documented in the resident�s note.
No new complaints.
Gen: NAD, AAOx3.
Eyes: EOMI, PERRLA, no scleral icterus.
Neck: supple.
CV: RRR, +S1/S2, no m/r/g.
Resp: CTAB, no rales, wheezes, or rhonchi.
Abd: +BS, soft, NT, ND
Skin: No rashes.
Neuro: CN 2-12 intact, non-focal.
Psych: Normal mood and affect.
CTA head/neck: Normal
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 Mild diffuse cortical atrophy.
MRI brain:
1. Tiny 2 m focus of restricted diffusion in the medial left temporal lobe (hippocampal region) consistent with TRANSIENT GLOBAL AMNESIA.
2. Mild diffuse cerebral and cerebellar volume loss.
3. SEVERE ENLARGEMENT of the POSTERIOR NASOPHARYNGEAL SOFT TISSUES. Diagnostic possibilities are (1) benign reactive adenoid tonsillar hypertrophy or (2) nasopharyngeal malignancy (squamous cell carcinoma or lymphoma).
4. Moderate fluid in the mastoid air cells bilaterally (possibly secondary to eustachian tube obstruction).
5. Mild paranasal sinus mucosal disease.
Echo:
Normal left ventricular size and systolic function.
Mild concentric left ventricular hypertrophy.
No regional wall motion abnormalities are seen.
LV ejection fraction is 60-65% by visual assessment.
Normal diastolic function.
Normal right ventricular size and function.
Structurally normal mitral valve without significant stenosis or regurgitation.
Structurally normal pulmonic valve without significant stenosis or
regurgitation.
Normal pericardium without effusion.
Mildly dilated aortic root and ascending aorta.
(Sinus of Valsalva 4.1 cm, Sinotubular junction 4.0 cm, Ascending aorta 4.1
cm).
Suboptimal subcostal views.
In limited views, there is no clear evidence of shunting via color flow
doppler.
Essentially normal study with a mildly enlarged aortic root, clinical
correlation is advised. No obvious cardiac source for neurologic issue.
Memory loss:
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
-CT brain, CTA head/neck, MRI brain, echo above
-EEG without seizure activity
-cont ASA/Plavix x 21 days, statin
-neuro following. Case discussed with Dr. Mattson extensively on 02/21/24. The patient has a history of provoked PE after knee surgery in 1994. Of note the patient does not have a PFO on TTE. Dr. Mattson recommending B/L LE U/S, USHA, as well as
hypercoagulable work up. I explained that I will order the B/L LE venous U/S but that USHA can be done outpt as pt is without acute CVA on MRI brain. I also explained that the patient's hypercoagulable workup can be done outpatient. Dr. Mattson
recommended Holter monitor which, as well, can be arranged outpatient. I did discuss this with Dr. Wilson who will assist in arranging outpatient Holter monitor. Finally, Dr. Mattson requested MRI brain w/maria e to assess severe enlargement of
posterior nasopharyngeal soft tissues. This, as well, can be done outpatient. As documented yesterday, the patient is aware of these findings and verbally knowledge understanding that he needs to follow-up with ENT for further workup and evaluation.
Morbid obesity due to excess calories
FULL/SCDs
Remains medically cleared for d/c.
Total time spent on d/c = 45 min. This included today's physical exam, progress note, review of laboratory and diagnostic data, preparation of discharge documents and prescriptions, and discussions about the pt's hospital course and discharge plan
with the patient and other medical doctor involved in the patient's care.
--- NOTE | 2024-02-21 09:41 | W.PN.HOSP.TC ---
Today's Communication/Plan
-
Patient to get Ultrasound of his lower extremities and then will be discharged home afterwards.
Assessment / Plan
Assessment / Plan
Assessment:
58 year old male with no significant past medical history presented to [facility] ED for evaluation of confusion and recent memory loss. Patient describes that he has no recollection of what had happened a few hours immediately before his
hospitalization. He remarks that his memory is otherwise fine except for those few hours. Currently he has no motor or sensory deficits and reports no other symptoms.
CT Head W/o Iv Contrast
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
Mild diffuse cortical atrophy
CT Head & Neck Angio W/wo IV
Normal
Brain MRI
1. Tiny 2 m focus of restricted diffusion in the medial left temporal lobe (hippocampal region) consistent with TRANSIENT GLOBAL AMNESIA.
2. Mild diffuse cerebral and cerebellar volume loss.
3. SEVERE ENLARGEMENT of the POSTERIOR NASOPHARYNGEAL SOFT TISSUES. Diagnostic possibilities are (1) benign reactive adenoid tonsillar hypertrophy or (2) nasopharyngeal malignancy (squamous cell carcinoma or lymphoma).
4. Moderate fluid in the mastoid air cells bilaterally (possibly secondary to eustachian tube obstruction).
5. Mild paranasal sinus mucosal disease.
Plan:
#Acute Amnestic Syndrome
-Routine EEG did not show any changes
-Neurology consulted, input appreciated
-Continue Aspirin and Plavix after discharge for 3 weeks
-Brain MRI w/o contrast- restricted diffusion in hippocampal region which would explain the transient global amnesia
-Seizure Precautions
-Continue monitoring for any changes in mental status
-Ordered US Lower Extremities to check for any DVT
-Holter Monitor outpatient setting
#Hypertension
-Continue monitoring BP
#Hyperlipidemia
-Continue atorvastatin
-Follow up with PCP outpatient
Full Code
DVT Prophylaxis- SCDs, Plavix
Anticipated Discharge: Today
Subjective/Interval History
-
Date of Service: February 21, 2024
Patient says that he is feeling very well and has no concerns. Says he has had no further instances of memory loss. Has had no sensory or motor deficits.
Objective Data
-
Labs:
Laboratory Results
02/21/24
05:30
WBC 13.1 H
Hgb 17.3
Hct 50.1
Plt Count 336
Sodium 135
Potassium 4.6
Chloride 102
Carbon Dioxide 23
BUN 17
Creatinine 0.7
Glucose 82
Calcium 9.3
Total Bilirubin 1.4 H
AST 24
ALT 23
Alkaline Phosphatase 62
Vital Signs:
Vital Signs
Temp Pulse Resp BP Pulse Ox
97.8 F 72 16 128/86 98
02/21/24 07:05 02/21/24 07:05 02/21/24 07:05 02/21/24 07:05 02/21/24 07:05
I&O
02/20/24 02/21/24 02/22/24
06:59 06:59 06:59
Intake Total 240 / 240
Balance 240 / 240
Review of Systems
-
History Source: Patient
Constitutional: Denies No Appetite, Fatigue, Night Sweats, Chills or Weakness
EENT: Reports No Symptoms Reported
Respiratory: Denies Cough, Trouble Breathing or Wheezing
Cardiac: Denies Chest Pain, Palpitations, Syncope or Orthopnea
Abdomen/GI: Denies Abdominal Pain, Nausea, Vomiting, Diarrhea or Constipated
Genitourinary: Reports No Symptoms
Musculoskeletal: Reports No Symptoms
Skin: Reports No Symptoms
Neuro: Denies Headache, Weakness, Numbness, Ataxia, Tremors or Lightheadedness
Endocrine: Reports No Symptoms
Hematologic / Lymphatic: Reports No Symptoms
Allergy / Immunology: Reports No Symptoms
Physical Exam
-
General: Well Developed, Well Nourished, No Apparent Distress and Comfortable
HEENT: Normocephalic, Atraumatic and Moist Mucous Membranes
Respiratory: Clear to Auscultation and Non Labored Respirations
Cardiac: Regular Rhythm and S1/S2
GI: Soft, Nontender and Nondistended
Musculoskeletal: No Clubbing, No Cyanosis and No Edema
Skin: Warm and Dry
Neuro: Awake, Alert, Oriented and AO x 3
Psych: Calm and Intact Judgement/Insight
Data Reviewed
-
CT Scan: Report Reviewed by me, Discussed with Physician, Discussed with Patient and Discussed with Family
MRI: Report Reviewed by me, Discussed with Physician, Discussed with Patient and Discussed with Family
Labs: Labs Reviewed by me, Discussed with Physician, Discussed with Patient and Discussed with Family
--- NOTE | 2024-02-21 09:50 | W.PN.NEURO.1 ---
Today's Communication / Plan
-
.
Subjective/Objective
Subjective Data
Date of Service: February 21, 2024
Neurology follow-up note
Mr. Carpio reports no headache change in strength or sensation. Blood pressure has been normal in AM, afebrile. 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
Brain MRI wo maria e-an acute left median temporal infarct, severe enlargement of posterior nasopharyngeal soft tissue as well as brain atrophy.
TTE(02/20/2024)-'essentially normal study with a mildly enlarged aortic root. No obvious cardiac source for neurologic issue.
LDL 149, WBC 14.6-13.1
Routine EEG(02/20/2024) normal.
PMH: class III obesity; colonic polyps history of sport related abdominal trauma
PSH: Exploratory laparotomy, splenectomy, right knee arthroscopy
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
FH: Father�colon/lung cancer, dementia (developed in his 70s); mother�pancreatic cancer, brother�A-fib
All:NKDA
ROS: Constitutional: Negative. Negative for chills, fever and unexpected weight change.
HENT: Negative for ear pain, hearing loss, tinnitus and trouble swallowing.
Eyes: Negative. Negative for photophobia, pain and visual disturbance.
Respiratory: Negative for cough, choking and shortness of breath.
Cardiovascular: Negative for chest pain, palpitations and leg swelling.
Gastrointestinal: Negative for abdominal pain and vomiting.
Endocrine: Negative. Negative for cold intolerance.
Genitourinary: Negative for dysuria, flank pain and urgency.
Musculoskeletal: Negative for back pain, gait problem, neck pain and neck stiffness.
Skin: Negative for rash.
Allergic/Immunologic: Negative. Negative for immunocompromised state.
Neurological: Positive for amnesia
Psychiatric/Behavioral: Negative for behavioral problems, confusion and hallucinations.
General: Well developed. In no acute distress.
Cardio: Regular rate and rhythm without murmur. Extremities are without cyanosis or edema.
Neuro:
Mental Status: Alert, oriented to person, place, and date. Normal attention and recall. Good fund of knowledge. Follows complex requests across the midline. Comprehension, naming, and repetition intact. Immediate recall�3 out of 3, delayed
recall�2/3.
Cranial Nerves: . Pupils are equally round and reactive to light. EOMs full. Visual muniz full to confrontation. No ptosis. No nystagmus. V1-V3 intact to light touch and pinprick bilaterally, symmetric. Face symmetric. Normal hearing AU.
The palate elevated well. SCMs and traps 5/5. Tongue midline. No dysarthria.
Motor: Normal bulk and tone. No pronator or arm drift. Strength 5/5 throughout. No clonus.
Reflexes: 2+ throughout the upper extremities and knees. Plantar responses flexor bilaterally.
Coordination: No dysmetria or tremor.
Gait: deferred
Assessment and Plan:
I. Acute Jama[place]/IMAGE CONSULTANT territory stroke. Likely etiology�embolic
II. DLP
III. Leukocytosis
IV. History of DVT/PE
V. Posterior nasopharyngeal soft tissue enlargement(reactive adenoid tonsillar hypertrophy vs nasopharyngeal malignancy)
-Telemetry monitoring
-DAPT for 21 days followed by aspirin 81 mg once a day lifelong
-Lipitor 40 mg nightly
-Hematology consult(can be done as OP)
-LE US
-Consider brain MRI with gadolinium, ENT consult
-OP sleep study
-No driving until cleared by neurology due to ongoing cognitive deficits
-Cardiology follow-up (outpatient Holter monitoring, ILR)
-Outpatient cognitive therapy
-Outpatient neurology follow-up in 2 weeks
I personally reviewed all radiology and labs along with past medical records pertinent to current medical problems. Total time spent in patient care is 45 minutes.
Thank you for allowing us to participate in the care of this patient. Please do not hesitate to contact us with any questions or concerns.
Objective Data
Vital Signs
Temp Pulse Resp BP Pulse Ox
36.6 C 72 16 128/86 98
02/21/24 07:05 02/21/24 07:05 02/21/24 07:05 02/21/24 07:05 02/21/24 07:05
Lab Results
02/21/24 05:30
02/21/24 05:30
Sodium 135 mmol/L (135-145) 02/21/24 05:30
Potassium 4.6 mmol/L (3.5-5.1) 02/21/24 05:30
BUN 17 mg/dl (9-20) 02/21/24 05:30
Glucose 82 mg/dl (70-99) 02/21/24 05:30
Calcium 9.3 mg/dl (8.4-10.2) 02/21/24 05:30
LDL Cholesterol, Calc 149 mg/dl 02/20/24 05:46
Ur Buprenorphine Negative (Negative) 02/20/24 21:53
Patient Allergies
No Known Allergies Allergy (Unverified 02/19/24 18:20)
Vital Signs and Labs
-
Vital Signs and Labs:
Vital Signs
Temp Pulse Resp BP Pulse Ox
36.6 C 72 16 128/86 98
02/21/24 07:05 02/21/24 07:05 02/21/24 07:05 02/21/24 07:05 02/21/24 07:05
Lab Results
02/21/24 05:30
02/21/24 05:30
Sodium 135 mmol/L (135-145) 02/21/24 05:30
Potassium 4.6 mmol/L (3.5-5.1) 02/21/24 05:30
BUN 17 mg/dl (9-20) 02/21/24 05:30
Glucose 82 mg/dl (70-99) 02/21/24 05:30
Calcium 9.3 mg/dl (8.4-10.2) 02/21/24 05:30
LDL Cholesterol, Calc 149 mg/dl 02/20/24 05:46
Ur Buprenorphine Negative (Negative) 02/20/24 21:53
Medications
-
Medications:
Generic Name Dose Route Start Last Admin
Trade Name Freq PRN Reason Stop Dose Admin
Acetaminophen 650 mg 02/19/24 23:45
Acetaminophen 650 Mg Rectal Suppository RECTAL 03/18/24 23:44
Q4HPRN PRN
RUANO, mild pain, or temp >100.4F
Acetaminophen 650 mg 02/19/24 23:45 02/20/24 13:24
Acetaminophen 325 Mg Tablet PO 03/18/24 23:44 650 mg
Q4HPRN PRN Administration
RUANO, mild pain, or temp >100.4F
Aspirin 81 mg 02/20/24 08:00 02/21/24 08:32
Aspirin 81 Mg (Enteric Coated) Tablet PO 03/19/24 07:59 81 mg
DAILY VIRGIE Administration
Atorvastatin Calcium 40 mg 02/19/24 23:45 02/20/24 17:37
Atorvastatin (Lipitor) 40 Mg Tablet PO 03/18/24 23:44 40 mg
QPM VIRGIE Administration
Clopidogrel Bisulfate 75 mg 02/20/24 08:00 02/21/24 08:32
Clopidogrel 75 Mg Tablet PO 03/19/24 07:59 75 mg
DAILY VIRGIE Administration
Sodium Chloride 0 flush 02/19/24 21:00
Sodium Chloride 0.9% (Flush) Syringe IV 03/18/24 20:59
PER PROTOCOL VIRGIE
Home Medications
-
Home Medications
fluticasone propionate 50 mcg/actuation nasal spray,suspension 1 spray intranasal DAILY 02/19/24
aspirin 81 mg tablet,delayed release (Adult Low Dose Aspirin) 81 mg PO DAILY 21 days #21 tabs 02/21/24
atorvastatin 40 mg tablet 40 mg PO QPM 30 days #30 tabs 02/21/24
clopidogrel 75 mg tablet 75 mg PO DAILY 21 days #21 tabs 02/21/24
--- NOTE | 2024-02-21 10:15 | CM ---
Initial assessment completed
Outpatient Observation form explained and signed @ 1015
Lives with spouse in a multilevel home; 2 steps to enter via garage; 18-20 steps to 2nd floor bath; railings present; powder room 1st floor
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
NO DME
NO history SNF or Home Health utilization
will transport home
Plan: Discharge to home when stable; no needs anticipated
[2024-02-21 10:57] LABS: Erythrocyte Sed Rate 3 mm/hour (0-20)
[2024-02-21 10:58] LABS: Amphetamines Negative (Negative); Barbiturates Negative (Negative); Benzodiazepines Negative (Negative); Buprenorphine Negative (Negative); Cocaine Negative (Negative); Marijuana Negative (Negative); Methadone Negative (Negative); Methamphetamines Negative (Negative); Opiates Negative (Negative); Phencyclidine Negative (Negative); Tricyclic Antidepressants Negative (Negative)
[2024-02-21 11:00] VITALS: BP 145/88
[2024-02-21 11:56] LABS: Vitamin B12 538 pg/ml (239-931)
--- NOTE | 2024-02-21 13:04 | W.DCSUMMARY ---
Addendum entered and electronically signed by Markie Seals MD, Resident 02/22/24 13:47:
Patient stayed extra night in order to get MRI w/ and w/o IV contrast:
Enlargement and enhancement of the adenoid region of the posterior nasopharynx. There is also enlargement and enhancement of the soft palate. Findings most likely represent reactive inflammation. Neoplasia difficult to completely excluded by
imaging. Consultation with ENT physician is recommended.
There is no evidence for abnormal enhancement within the brain. The dural venous sinuses appear patent.
Patient continued to be medically cleared for discharge and was discharged on 02/22/2024. Patient was given instructions to follow up with his PCP and several specialists including ENT, Heme/Oncology, Cardiology, and Neurology.
Original Note:
Discharge Summary
Discharge Data
Date of Admission: 02/19/24
Date of Discharge: 02/21/24
-
Pending Results: Yes
Additional Pending Results:
Protein C
Protein S Antigen
Antithrombin III Activ
Homocysteine
Proteinase 3 (PR3) Ab
Myeloperoxidase Ab
Beta-2-GPI IgG Ab
Beta-2-GPI IgA Ab
Beta-2-GPI IgM Ab
Phosphatidylserine IgG
Phosphatidylserine IgA
Phosphatidylserine IgM
Anti-Cardiolipin IgG Ab
Anti-Cardiolipin IgA Ab
Anti-Cardiolipin IgM Ab
Lyme Screen IgG & IgM
Hepatitis C Antibody
HIV Ag/Ab Combo Qual
Hospital Course
Discharging Physician : Dr. Fritz Coy, Dr. Markie Seals
Disposition : Home
Primary care physician : Dr. Aman Abdalla
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
Chronic Discharge diagnosis : Morbid Obesity due to Excess Calories, Hyperlipidemia
Hospital Course :
58 year old male with no significant past medical history presented to [facility] ED on 02/19/2024 for evaluation of confusion and recent memory loss. Patient described that he had no recollection of what had happened a few hours
immediately before his hospitalization. He remarked that his memory was otherwise fine except for those few hours. Patient was worked up for a potential stroke but testing and CT scans showed no evidence of any stroke. Patient was started on 40mg of
Atorvastatin along with Aspirin and Plavix. Patient continued to feel better and underwent further neurological testing by the Neurology team. The EEG showed a normal pattern and the MRI showed restricted diffusion in the hippocampal region that
would be consistent with transient global amnesia. There was also severe enlargement of the posterior nasopharyngeal soft tissues seen which could be due to benign hypertrophy of the tonsils or nasopharyngeal malignancy. Patient was evaluated by
Neurology and patient relayed that he had an incidence of DVT after his knee surgery back in 1994. Patient had no complaints consistent with DVT of his lower extremities at this time but underwent an ultrasound of his bilateral lower extremities
which was negative for DVT. Blood was also drawn to check for coagulation studies and other hematological disorders. Patient continued to feel better and was medically cleared for discharge and asked to follow up with his PCP within the week.
Patient was also counseled continue taking Aspirin and Plavix for 3 weeks and to follow up with Neurology, and then Cardiology for a Holter Monitor at home. He is also to continue taking Atorvastatin as well. He was also asked to follow up with
Heme/Oncology for potential blood coagulation disorder and also ENT for further workup of the incidental findings seen on the MRI.
Important imaging findings :
CT Head W/o Iv Contrast
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
Mild diffuse cortical atrophy
CT Head & Neck Angio W/wo IV
Normal
MR Brain Without Contrast
1. Tiny 2 m focus of restricted diffusion in the medial left temporal lobe (hippocampal region) consistent with TRANSIENT GLOBAL AMNESIA.
2. Mild diffuse cerebral and cerebellar volume loss.
3. SEVERE ENLARGEMENT of the POSTERIOR NASOPHARYNGEAL SOFT TISSUES. Diagnostic possibilities are (1) benign reactive adenoid tonsillar hypertrophy or (2) nasopharyngeal malignancy (squamous cell carcinoma or lymphoma).
4. Moderate fluid in the mastoid air cells bilaterally (possibly secondary to eustachian tube obstruction).
5. Mild paranasal sinus mucosal disease.
US Periph Venous LOWER Ext Keven
1. No evidence of deep venous thrombosis in the bilateral lower extremities as described above.
Procedure findings :
EEG
This is a normal awake and drowsy EEG. There is no evidence of focal slowing or epileptiform activity.� A normal EEG does not rule out epilepsy. If the clinical picture warrants, a sleep-deprived awake and sleep record may be helpful.
Discharge Plan
-
Patient Disposition: Home (Routine Discharge)
Discharge Diagnosis/Procedures: Memory Loss due to Transient Global Amnesia
Condition: Good
Diet: Low Cholesterol
Activity: No restrictions
Driving Restrictions: Not until seen by your Dr
Bathing Restrictions: None
Referrals:
Aman Abdalla Jr., MD [Family Provider] - in less than 1 week
Halina Galicia MD [Active] - in one to two weeks (Follow up for hypercoagulable workup)
Orville Montano MD [Active] - in one to two weeks
Fox Wilson MD [Active] - in one to two weeks
()
Jann Mai MD [Active] - in one to two weeks
Additional Discharge Medication Instructions: Take Aspirin and Clopidogrel for 3 weeks after discharge
Take Atorvastatin Once a day
MRI brain:
1. Tiny 2 m focus of restricted diffusion in the medial left temporal lobe (hippocampal region) consistent with TRANSIENT GLOBAL AMNESIA.
2. Mild diffuse cerebral and cerebellar volume loss.
3. SEVERE ENLARGEMENT of the POSTERIOR NASOPHARYNGEAL SOFT TISSUES. Diagnostic possibilities are (1) benign reactive adenoid tonsillar hypertrophy or (2) nasopharyngeal malignancy (squamous cell carcinoma or lymphoma).
4. Moderate fluid in the mastoid air cells bilaterally (possibly secondary to eustachian tube obstruction).
5. Mild paranasal sinus mucosal disease.
MRI brain findings discussed with you over the phone on 02/20/24. I specifically mentioned the severe enlargement of the posterior nasopharyngeal soft tissues which could be nasopharyngeal malignancy (squamous cell carcinoma or lymphoma). I
explained that you need to see ENT within 1 to 2 weeks to have this further investigated. You verbally knowledges understanding of this.
Prescriptions:
New
aspirin [Adult Low Dose Aspirin] 81 mg tablet,delayed release (DR/EC)
81 mg PO DAILY 21 Days Qty: 21 0RF
atorvastatin 40 mg Tablet
40 mg PO QPM 30 Days Qty: 30 1RF
clopidogrel 75 mg Tablet
75 mg PO DAILY 21 Days Qty: 21 0RF
Continued
fluticasone propionate 50 mcg/actuation [place],Suspension
1 spray INTRANASAL DAILY
Discharge Orders:
Discharge Patient (As Directed); Ordered 02/21/24
Ordered By: Fritz Coy
Discharge Date and Time
Print Language: GUINEAN
--- NOTE | 2024-02-21 14:21 | W.PN.UPDATE ---
Update Note
Progress Note Update
Case discussed at length with Dr. Mattson who feels that L hippocampal findings on MRI brain represent an acute CVA. Case has been discussed with the pt and he would like to proceed with MRI brain with contrast to assess severe enlargement of the
posterior nasopharyngeal soft tissues. In further discussing the case with Dr. Mattson she feels that the patient has a '99% chance' of having underlying afib. Will c/s cardiology for completeness.
[2024-02-21 14:22] LABS: HIV Combo Negative (Negative)
--- NOTE | 2024-02-21 14:44 | W.PN.UPDATE ---
Update Note
Progress Note Update
I reviewed the pt's MRI brain from 02/20/[address] Callum Garcia over the phone just now and he clarified that the findings on the pt's MRI brain do not represent acute CVA.
--- NOTE | 2024-02-21 15:02 | W.PN.UPDATE ---
Update Note
Progress Note Update
Telemetry reviewed by myself. No evidence of atrial fibrillation or atrial flutter to date.
Patient updated on the current plan of care. 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 He states he has been dealing with sinusitis for over a month now. Reasonable to trial Augmentin.
[2024-02-21 15:05] VITALS: BP 140/85
--- NOTE | 2024-02-21 17:09 | CON.CAR ---
Consultation
Consultation Request
Date/Time Consultation Requested: 02/21/2024 at noon
Date/Time Consultation Performed: 02/21/2024 at 1700
Requesting Provider: Dr. Coy
Performing Provider: John Nino
Reason for Consultation: Transient global amnesia
Medical History
-
Chief Complaint: Transient global amnesia
History of Present Illness:
58-year-old man without allergies on no prescription medications and little past medical history recently using fluticasone and pseudoephedrine, was unable to recall year date, month and brought to ER with confusion now feels well. CT of head
suggested 4 mm lacunar, CTA of carotids was unremarkable head CT suggested 4 mm lacunar infarct left lentiform nucleus with mild diffuse atrophy. MRI suggested 2 mm focus of restricted diffusion left medial temporal lobe near the hippocampus. Of
note, he used to weigh over 400 pounds and has lost 100 pounds. He has no history of palpitations, atrial arrhythmia or other complaints. He used to snore before weight loss and tonsillectomy but has no daytime fatigue and says he no longer
snores.
Past Medical History
Past Medical History: None (However, suspect he may have stage I hypertension, and he has mild hypercholesterolemia)
Past Surgical History: Orthopedic (Bilateral knee surgery) and Other (Splenectomy for trauma)
Social History
Tobacco: Non-Smoker
Alcohol: Occasional (Rare)
Drug: None
Personal:
Living: With Family
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
Family History
Family History: Reviewed & Not Pertinent
Allergies / Home Medications
Allergy/AdvReac Type Severity Reaction Status Date / Time
No Known Allergies Allergy Unverified 02/19/24 18:20
�Medication �Instructions �Recorded �Confirmed �Type
fluticasone propionate 50 1 spray intranasal DAILY 02/19/24 02/19/24 History
mcg/actuation nasal
spray,suspension
aspirin 81 mg tablet,delayed 81 mg PO DAILY 21 days #21 tabs 02/21/24 Rx
release (Adult Low Dose Aspirin)
atorvastatin 40 mg tablet 40 mg PO QPM 30 days #30 tabs 02/21/24 Rx
clopidogrel 75 mg tablet 75 mg PO DAILY 21 days #21 tabs 02/21/24 Rx
Review of Systems
-
All other systems: Negative unless noted
Physical Exam
Vital Signs
Temp Pulse Resp BP Pulse Ox
36.4 C 76 16 140/85 98
02/21/24 15:05 02/21/24 15:05 02/21/24 15:05 02/21/24 15:05 02/21/24 15:05
Lab Results
02/21/24 05:30
02/21/24 05:30
Troponin I < 0.012 ng/ml 02/19/24 18:51
Physical Exam
General: No Apparent Distress
HEENT: Normocephalic
Respiratory: Clear
Cardiac: Regular Rhythm and Other (No murmurs)
GI: Soft, Non Tender and Non Distended
Musculoskeletal: No Edema
Skin: Warm and Dry
Neuro: AO x 3
Psych: Calm
Impression / Plan
-
Impression:
Transient global amnesia
Suspected old lentiform lacunar infarcts
2 mm restricted diffusion left temporal lobe near hippocampus
Possible stage I hypertension
Hypercholesterolemia, mild
History of morbid obesity, with 100 pounds of weight loss
Echocardiogram February 2024: Mild LVH, EF 60-65%, normal left atrium, no valvular heart disease, sinus of Valsalva is 4.1 cm
ECG: Normal sinus rhythm, normal ECG
Plan:
He presents with an episode of transient global amnesia. This has resolved. There are very subtle findings on CT and MRI imaging of the brain.
His echocardiogram is essentially normal. He has mild LVH as expected for his weight and possible mild hypertension.
Thus far there is no evidence of atrial fibrillation, and I suspect that his event was not cardioembolic, though we cannot be certain. It is reasonable to arrange for outpatient monitoring.
I encouraged him to continue his impressive weight loss efforts, and to pursue optimal lifestyle.
Utility of transesophageal echo in the setting is low. Bubble study also of limited utility.
No objections to discharge from a cardiac standpoint. We will arrange for an outpatient monitor and can arrange for patient to see us in follow-up.
Agree with addition of statin therapy, presumably to go home on DAPT and then to a single agent.
Please call if questions.
Data Reviewed
-
EKG: Tracing Personally Visualized and interpreted
CT Scan: Report Reviewed by me
MRI: Report Reviewed by me
Medical Tests (Nuc Med, Echo etc): Report Reviewed by me
Labs: Labs Reviewed by me (Cholesterol is 213)
Old Records: Reviewed
[2024-02-21] MEDS: LIPITOR 40 MG PO (17:59)
[2024-02-21 19:23] VITALS: BP 131/72
[2024-02-21] MEDS: AUGMENTIN 875 MG/125 MG 1 TABLET PO (19:48)
[2024-02-21 23:29] VITALS: BP 120/84
[2024-02-22 03:40] VITALS: BP 122/86
[2024-02-22 05:23] LABS: Hepatitis C Antibody Negative (Negative)
[2024-02-22 06:04] LABS: Hematocrit 50.9 % (39.0-52.0); Hemoglobin 16.8 g/dL (13.0-18.0); Mean Corpuscular Hgb 29.7 pg (27.0-31.0); Mean Corpuscular Volume 90.1 fL (80.0-94.0); Mean Platelet Volume 9.4 fL (7.4-10.4); Platelet Count 369 10^3/uL (130-400); Red Blood Cell Count 5.65 10^6/uL (4.70-6.10); Red Cell Dist. Width 13.7 % (11.5-14.5)
[2024-02-22 06:29] LABS: Blood Urea Nitrogen 18 mg/dl (9-20); Calcium 9.2 mg/dl (8.4-10.2); Carbon Dioxide 26 mmol/L (22-30); Chloride 101 mmol/L (98-107); Estimated Creatinine Clearance > 125 ml/min; Glucose 82 mg/dl (70-99); Potassium 4.5 mmol/L (3.5-5.1); Sodium 138 mmol/L (135-145); eGFR > 60.00
[2024-02-22 07:05] VITALS: BP 129/87
--- NOTE | 2024-02-22 07:31 | W.PN.UPDATE ---
Update Note
Progress Note Update
I saw and evaluated the patient. I reviewed the resident�s note and agree with findings and plan as documented in the resident�s note.
No new complaints. Report upper airway congestion/sinus symptoms have improved significantly.
Gen: NAD, AAOx3.
Eyes: EOMI, PERRLA, no scleral icterus.
Neck: supple.
CV: remains RRR, +S1/S2, no m/r/g.
Resp: remains CTAB, no rales, wheezes, or rhonchi.
Abd: remains +BS, soft, NT, ND
Skin: No rashes.
Neuro: CN 2-12 intact, non-focal.
Psych: Normal mood and affect.
CTA head/neck: Normal
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 Mild diffuse cortical atrophy.
MRI brain:
1. Tiny 2 m focus of restricted diffusion in the medial left temporal lobe (hippocampal region) consistent with TRANSIENT GLOBAL AMNESIA.
2. Mild diffuse cerebral and cerebellar volume loss.
3. SEVERE ENLARGEMENT of the POSTERIOR NASOPHARYNGEAL SOFT TISSUES. Diagnostic possibilities are (1) benign reactive adenoid tonsillar hypertrophy or (2) nasopharyngeal malignancy (squamous cell carcinoma or lymphoma).
4. Moderate fluid in the mastoid air cells bilaterally (possibly secondary to eustachian tube obstruction).
5. Mild paranasal sinus mucosal disease.
Echo:
Normal left ventricular size and systolic function.
Mild concentric left ventricular hypertrophy.
No regional wall motion abnormalities are seen.
LV ejection fraction is 60-65% by visual assessment.
Normal diastolic function.
Normal right ventricular size and function.
Structurally normal mitral valve without significant stenosis or regurgitation.
Structurally normal pulmonic valve without significant stenosis or
regurgitation.
Normal pericardium without effusion.
Mildly dilated aortic root and ascending aorta.
(Sinus of Valsalva 4.1 cm, Sinotubular junction 4.0 cm, Ascending aorta 4.1
cm).
Suboptimal subcostal views.
In limited views, there is no clear evidence of shunting via color flow
doppler.
Essentially normal study with a mildly enlarged aortic root, clinical
correlation is advised. No obvious cardiac source for neurologic issue.
B/L LE U/S: No evidence of deep venous thrombosis in the bilateral lower extremities
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
-CT brain, CTA head/neck, MRI brain, echo above
-Note, I reviewed the pt's MRI brain from 02/20/[address] Callum Garcia over the phone on 02/21/24 he clarified that the findings on the pt's MRI brain do not represent acute CVA.
-EEG without seizure activity
-UDS NEG x 2
-hypercoagulable work up underway as per neuro recs
-cont ASA/Plavix x 21 days, statin as per neuro recs
-Appreciate cardiology. No evidence of atrial fibrillation and cardioembolic phenomenon is unlikely. No recommendations for USHA or echo with bubble study at this time. Outpatient Holter monitor.
Sinusitis:
-mild as per MRI but pt with symptoms for over a month and requested trial of abx and Augmentin started 02/11/24. Will complete 7 days of tx with f/u with PCP during that time.
Severe enlargement of the posterior nasopharyngeal soft tissues:
-s/p MRI with head with contrast today, read pending
Morbid obesity due to excess calories
FULL/SCDs
--- NOTE | 2024-02-22 07:40 | W.PN.HOSP.TC ---
Today's Communication/Plan
-
Patient to get MRI today. Will be okay to be discharged afterwards.
Assessment / Plan
Assessment / Plan
Assessment:
58 year old male with no significant past medical history presented to [facility] ED for evaluation of confusion and recent memory loss. Patient describes that he has no recollection of what had happened a few hours immediately before his
hospitalization. He remarks that his memory is otherwise fine except for those few hours. Currently he has no motor or sensory deficits and reports no other symptoms.
CT Head W/o Iv Contrast
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
Mild diffuse cortical atrophy
CT Head & Neck Angio W/wo IV
Normal
Brain MRI
1. Tiny 2 m focus of restricted diffusion in the medial left temporal lobe (hippocampal region) consistent with TRANSIENT GLOBAL AMNESIA.
2. Mild diffuse cerebral and cerebellar volume loss.
3. SEVERE ENLARGEMENT of the POSTERIOR NASOPHARYNGEAL SOFT TISSUES. Diagnostic possibilities are (1) benign reactive adenoid tonsillar hypertrophy or (2) nasopharyngeal malignancy (squamous cell carcinoma or lymphoma).
4. Moderate fluid in the mastoid air cells bilaterally (possibly secondary to eustachian tube obstruction).
5. Mild paranasal sinus mucosal disease.
Echocardiogram:
Essentially normal study with a mildly enlarged aortic root, clinical correlation is advised. No obvious cardiac source for neurologic issue.
Plan:
#Acute Amnestic Syndrome
-Routine EEG did not show any changes
-Neurology consulted, input appreciated
-Continue Aspirin and Plavix after discharge for 3 weeks
-Brain MRI w/o contrast- restricted diffusion in hippocampal region which would explain the transient global amnesia
-Seizure Precautions
-Continue monitoring for any changes in mental status
-Ordered US Lower Extremities to check for any DVT
-Coagulation and antibody studies ordered by neurology due to previous DVT event in 1994
-Will follow up with Hematology/Oncology
-Cardiology consulted, input appreciated
-Telemetry showed no signs of A-Fib
-Second MRI (W and W/O contrast) ordered due to suspected stroke from the Neurology side
-Will be okay to be discharged today if second MRI is clear
-Okay to discharge patient with Statin, Aspirin, Plavix. Will follow up outpatient for Holter Monitor and further anticoagulation management
#Hypertension
-Continue monitoring BP
#Incidental finding of enlargement of Posterior Nasopharyngeal soft tissues
-Seen on MRI, could be due to benign reactive adenoid tonsillar hypertrophy or nasopharyngeal malignancy
-Will follow up with ENT in the outpatient setting
#Sinusitis
-Patient started on Augmentin for potential sinus infection
#Hyperlipidemia
-Continue atorvastatin
-Follow up with PCP/Cardiology outpatient
Full Code
DVT Prophylaxis- SCDs, Plavix
Anticipated Discharge: Today
Subjective/Interval History
-
Date of Service: February 22, 2024
Patient has been feeling well. No adverse events overnight. Has not noticed any further amnesic events, or any sensory/motor changes.
Objective Data
-
Labs:
Laboratory Results
02/22/24
05:16
WBC 13.0 H
Hgb 16.8
Hct 50.9
Plt Count 369
Sodium 138
Potassium 4.5
Chloride 101
Carbon Dioxide 26
BUN 18
Creatinine 0.9
Glucose 82
Calcium 9.2
Vital Signs:
Vital Signs
Temp Pulse Resp BP Pulse Ox
97.9 F 69 20 122/86 94
02/22/24 03:40 02/22/24 03:40 02/22/24 03:40 02/22/24 03:40 02/22/24 03:40
I&O
02/21/24 02/22/24 02/23/24
06:59 06:59 06:59
Intake Total 240 / 240
Balance 240 / 240
Review of Systems
-
History Source: Patient
Constitutional: Denies Fever, No Appetite, Fatigue, Sleep Disturbance, Chills or Weakness
EENT: Reports Other (increased sinus pressure)
Respiratory: Denies Cough, Trouble Breathing or Wheezing
Cardiac: Denies Chest Pain, Palpitations or Syncope
Abdomen/GI: Denies Abdominal Pain, Nausea or Vomiting
Genitourinary: Reports No Symptoms
Musculoskeletal: Reports No Symptoms
Skin: Reports No Symptoms
Neuro: Reports No Symptoms
Endocrine: Reports No Symptoms
Hematologic / Lymphatic: Reports No Symptoms
Allergy / Immunology: Reports No Symptoms
Physical Exam
-
General: Well Developed, Well Nourished, No Apparent Distress, Comfortable and Conversant
HEENT: Normocephalic, Atraumatic and Moist Mucous Membranes
Respiratory: Clear to Auscultation and Non Labored Respirations
Cardiac: Regular Rhythm and S1/S2
GI: Soft, Nontender, Nondistended and Normal Bowel Sounds
Musculoskeletal: No Clubbing, No Cyanosis and No Edema
Skin: Warm and Dry
Neuro: Awake, Alert, Oriented, AO x 3, No Motor Deficits and No Sensory Deficits
Psych: Calm and Intact Judgement/Insight
Data Reviewed
-
MRI: Report Reviewed by me, Discussed with Physician, Discussed with Patient and Discussed with Family
Medical Tests (Nuc Med, Echo etc): Report Reviewed by me, Discussed with Physician, Discussed with Patient and Discussed with Family
Labs: Labs Reviewed by me, Discussed with Physician, Discussed with Patient and Discussed with Family
[2024-02-22] MEDS: ASPIR LOW (ENTERIC COATED) 81 MG PO (07:58)
[2024-02-22] MEDS: AUGMENTIN 875 MG/125 MG 1 TABLET PO (07:58)
[2024-02-22] MEDS: FLUSH (NSS) 1 FLUSH IV ×2 (07:59→09:07)
[2024-02-22] MEDS: PLAVIX 75 MG PO (07:59)
[2024-02-22] MEDS: ATIVAN 2 MG IV (09:06)
[2024-02-22] MEDS: NSS (PRESERVATIVE FREE) 1 ML IV (09:06)
[2024-02-22 11:31] VITALS: BP 127/87
--- NOTE | 2024-02-22 12:57 | W.PN.UPDATE ---
Update Note
Progress Note Update
MRI brain w and wo/IV contrast: Enlargement and enhancement of the adenoid region of the posterior nasopharynx. There is also enlargement and enhancement of the soft palate. Findings most likely represent reactive inflammation. Neoplasia difficult
to completely excluded by imaging. Consultation with ENT physician is recommended. There is no evidence for abnormal enhancement within the brain. The dural venous sinuses appear patent.
Case discussed with ENT. As per Dr. Mai on [facility], 'This patient should be seen as an outpatient. The odds are very high that: These are incidental findings with no clinical significance. However, we need to perform endoscopy to locate it
and I can do that in the hospital because I do not have the equipment. So it needs to be done in the office. Just give him her number and have them follow-up as an outpatient.'
This information was communicated to the patient and he will follow-up with ENT outpatient.
Medically cleared for discharge.
Total time spent on d/c = 40 min. This included today's physical exam, progress note, review of laboratory and diagnostic data, preparation of discharge documents and prescriptions, and discussions about the pt's hospital course and discharge plan
with the patient and other medical billing supervisor involved in the patient's care.
--- NOTE | 2024-02-22 13:30 | CM ---
No Skilled PT needed
Plan: Discharge to home; family will transport; no needs
[2024-02-22 21:15] LABS: Homocysteine 8 umol/L (0-15)
[2024-02-23 06:21] LABS: Myeloperoxidase Antibody 0 AU/mL (0-19); Serine Protease-3, IgG 3 AU/mL (0-19)
[2024-02-23 15:51] LABS: Lyme Antibody Screen, EIA Negative (Negative)
[2024-02-23 18:53] LABS: Protein S Total Antigen 96 % (84-134)
[2024-02-23 19:28] LABS: Beta-2-Glycoprotein I Ab. IgG <10 SGU (<=20); Beta-2-Glycoprotein I Ab. IgM <10 SMU (<=20)
[2024-02-23 19:30] LABS: Anti-Thrombin III Activity 107 % (76-128)
[2024-02-23 19:34] LABS: Cardiolipin IgA Antibody <10 APL (<=11); Cardiolipin IgM Antibody <10 MPL (<=12); Cardiolipin Igg Antibody <10 GPL (<=14)
[2024-02-23 22:01] LABS: Protein C, Total Antigen >95 % (63-153)
[2024-02-23 23:48] LABS: Beta-2-Glycoprotein I Ab. IgA <10 SAU (<=20)
[2024-02-24 13:24] LABS: Phosphatidylserine Ab, IgA 2 APS (0-19); Phosphatidylserine Ab, IgG 12 GPS (0-15); Phosphatidylserine Ab, IgM 3 MPS (0-21)
== END 2024-02-22 14:00 | disposition home or self-care (01) | DRG 72 ==
LOC: 4 EAST ACU 14:47
PROVIDERS: Nurse Practitioner; Registered Nurse; ADMITTING PHYSICIAN Hospitalist; ATTENDING PHYSICIAN Internal Medicine; CONSULT PHYSICIAN Internal Medicine Cardiovascular Disease; CONSULT PHYSICIAN Psychiatry & Neurology Neurology; EMERGENCY PHYSICIAN Emergency Medicine; FAMILY PHYSICIAN Internal Medicine
DX: G45.4 Transient global amnesia (principal); J00 Acute nasopharyngitis [common cold]; G31.9 Degenerative disease of nervous system, unspecified; E66.813 Obesity, class 3; D72.829 Elevated white blood cell count, unspecified; J32.9 Chronic sinusitis, unspecified; E66.01 Morbid (severe) obesity due to excess calories; I10 Essential (primary) hypertension; E78.00 Pure hypercholesterolemia, unspecified; J35.1 Hypertrophy of tonsils; E78.5 Hyperlipidemia, unspecified; I51.7 Cardiomegaly; Z86.0100 Personal history of colon polyps, unspecified; Z80.0 Family history of malignant neoplasm of digestive organs; Z90.81 Acquired absence of spleen; Z86.73 Personal history of transient ischemic attack (TIA), and cerebral infarction without residual deficits; Z80.1 Family history of malignant neoplasm of trachea, bronchus and lung; Z82.49 Family history of ischemic heart disease and other diseases of the circulatory system; Z79.82 Long term (current) use of aspirin; Z68.39 Body mass index [BMI] 39.0-39.9, adult; Z86.711 Personal history of pulmonary embolism; Z86.718 Personal history of other venous thrombosis and embolism
CPT/HCPCS: 70450; 70496; 70498; 70551; 70553; 80048; 80053; 80061; 80306; 81003; 82607; 83036; 83090; 83516; 84443; 84484; 85025; 85027; 85300; 85302; 85305; 85652; 86140; 86146; 86147; 86148; 86618; 86803; 87389; 92523; 92610; 93005; 93306; 93970; 95816; 97161; 99285; A9575; Q9967

== ENCOUNTER → 2024-04-23 13:38 | Outpatient (REF) | payer BC, SELFPAY | LOC: CLAB 13:38 | PROVIDERS: ATTENDING PHYSICIAN Orthopaedic Surgery | DX: R22.32 Localized swelling, mass and lump, left upper limb (principal) | CPT/HCPCS: 88304 ==